=== PATIENT | male | born 1965 ===

== ENCOUNTER 2023-10-05 09:50 | Outpatient (CLI) | payer BC, SELFPAY ==
--- NOTE | ~2023-10-05 | MR_ITS ---
EXAMINATION: MR thoracic spine wo con DATE: 10/05/2023 10:49 INDICATION: Right-sided mid back pain. TECHNIQUE: Magnetic resonance imaging (MRI) of the thoracic spine was performed without intravenous c ontrast. COMPARISON: None FINDINGS: Bone alignment is normal. There is mild chronic anterior wedging of T5-T7 and T10-T12 verte bral bodies. There are Schmorl's nodes at multiple levels. There is mildly decreased disc height from T2-T3 through T5-T6, moderately decreased disc height from T6-T7 through T8-T9, and mildly decreased disc height at T9-T10. There is multilevel facet joint osteoarthritis, severe at multiple levels. Th ere is multilevel mild neural foraminal stenosis bilaterally. On the right, there is moderate neural foraminal stenosis at T8-T9. There are central extrusions or protrusions from T3-T4 through T10-T11 w ith mild central canal stenosis. There is ventral indentation of the spinal cord at T3-T4, T4-T5, T5- T6, and T9-T10. The spinal cord signal intensity is normal. The conus medullaris is at T12. IMPRESSION: 1. Moderate thoracic spondylosis. Reviewed, dictated and finalized at location E.
== END 2023-10-05 09:51 ==
LOC: MICIMG 09:53
PROVIDERS: PCP Pediatrics; Visit Provider Pediatrics
DX: M54.30 Sciatica, unspecified side (principal); M62.830 Muscle spasm of back; M47.894 Other spondylosis, thoracic region
CPT/HCPCS: 72146